=== PATIENT | female | born 1970 | race Asian ===

== ENCOUNTER 2017-08-20 07:13 | Day surgery (SDC) | payer OTHER ==
[2017-08-20] MEDS ORDERED: CEFAZOLIN 2 GM/50 ML (PMX) 50 ML IVPB (07:45)
[2017-08-20] MEDS ORDERED: DEXTROSE 5%-0.9% NACL 1,000 ML IV (07:46)
[2017-08-20 08:07] LABS: ADD MAN DIFF? NO
[2017-08-20 08:10] LABS: BASOPHILS % 1.2 % (0.0-2.0); EOSINOPHILS # 0.2 10^3/ul (0.0-0.5); EOSINOPHILS % 4.8 % (0.0-7.0); HEMATOCRIT 36.6 % (37.0-47.0); HEMOGLOBIN 12.7 g/dl (12.0-16.0); LYMPHOCYTES # 0.8 10^3/ul (0.8-2.9); LYMPHOCYTES % 23.7 % (15.0-51.0); MEAN CORPUSCULAR HEMOGLOBIN 32.8 pg (29.0-33.0); MEAN CORPUSCULAR HGB CONC 34.7 g/dl (32.0-37.0); MEAN CORPUSCULAR VOLUME 94.6 fl (82.0-101.0); MEAN PLATELET VOLUME 10.4 fl (7.4-10.4); MONOCYTE # 0.4 10^3/ul (0.3-0.9); MONOCYTES % 10.5 % (0.0-11.0); NEUTROPHILS % 59.8 % (39.0-77.0); PLATELET COUNT 154 10^3/UL (140-415); RED BLOOD COUNT 3.87 10^6/ul (4.20-5.40)
[2017-08-20 08:28] LABS: HOLD TRANSMISSIONS 1
[2017-08-20 08:31] LABS: WHITE BLOOD COUNT 3.3 10^3/ul (4.8-10.8)
[2017-08-20 08:31] LABS: INR 0.92; PROTIME 12.4 Sec (11.9-14.9)
[2017-08-20 08:32] LABS: PARTIAL THROMBOPLASTIN TIME 29.6 Sec (25.0-35.0)
[2017-08-20 08:36] LABS: ALANINE AMINOTRANSFERASE 22 IU/L (13-69); ALBUMIN 4.3 g/dl (3.3-4.9); ALBUMIN/GLOBULIN RATIO 1.43; ALKALINE PHOSPHATASE 56 IU/L (42-121); ANION GAP 16 (8-16); ASPARTATE AMINO TRANSFERASE 24 IU/L (15-46); BILIRUBIN,INDIRECT 0.4 mg/dl (0-1.1); BILIRUBIN,TOTAL 0.4 mg/dl (0.2-1.3); BLOOD UREA NITROGEN 17 mg/dl (7-20); CALCIUM 8.9 mg/dl (8.4-10.2); CARBON DIOXIDE 28 mmol/L (21-31); CHLORIDE 107 mmol/L (97-110); CREATININE 0.74 mg/dl (0.44-1.00); GLUCOSE 92 mg/dl (70-220); SODIUM 147 mmol/L (135-144); TOTAL PROTEIN 7.3 g/dl (6.1-8.1)
[2017-08-20] MEDS ORDERED: MIDAZOLAM 1 MG/ML 2 ML INJ (09:28)
[2017-08-20] MEDS ORDERED: FENTAnyl 50 MCG/ML VIAL (09:28)
[2017-08-20] MEDS ORDERED: PROPOFOL 20 ML (10:13)
[2017-08-20] MEDS ORDERED: LIDOCAINE 100 MG SYRINGE (10:13)
[2017-08-20] MEDS ORDERED: CEFAZOLIN 1 GM INJ (10:13)
[2017-08-20] MEDS ORDERED: ONDANSETRON 4 MG INJ (10:13)
[2017-08-20] MEDS ORDERED: MEPERIDINE 25 MG INJ IV (10:30)
[2017-08-20] MEDS ORDERED: HYDROmorphONE (0.2 MG/ML) 10ML SYG IV ×2 (10:30)
[2017-08-20] MEDS ORDERED: DIPHENHYDRAMINE 50 MG INJ IV (10:30)
[2017-08-20] MEDS ORDERED: FENTAnyl 50 MCG/ML VIAL IV (10:30)
[2017-08-20] MEDS ORDERED: KETOROLAC 30 MG INJ IV (10:30)
[2017-08-20] MEDS ORDERED: ONDANSETRON 4 MG INJ IV (10:30)
[2017-08-20] MEDS: KETOROLAC 30 MG INJ IV (10:55)
== END 2017-08-20 11:50 | disposition home or self-care (01) ==
LOC: SDS 07:13
DX: N72 Inflammatory disease of cervix uteri (principal); N84.1 Polyp of cervix uteri; Z85.3 Personal history of malignant neoplasm of breast
CPT/HCPCS: 58558; 71045; 80053; 84703; 85025; 85610; 85730; 88305; 93005